=== PATIENT | female | born 2000 | race Two or more races ===

== ENCOUNTER 2024-09-15 09:01 | Inpatient (IN) | payer MEDICAID, OTHER ==
[~2024-09-15] VITALS: Ht 157.5 cm; Wt 61.2 kg
--- NOTE | 2024-09-15 09:36 | ED.PDOC ---
GI ASSESSMENT HPI Comments 24 year old female presents to the ED with chief complaint of abdominal pain. Patient reports that she has been experiencing diffuse abdominal pain with associated sweats, nausea, vomiting, and diarrhea since last night. Patient relays that she was normal prior to symptom onset and had gone to work with no issues. Patient denies any fever, chills, dizziness, headache, dysuria, or hematemesis. Chief Complaint: Nausea/Vomiting Time Seen by MD: 09:31 Primary Care Provider: NONE Reviewed Notes: Nurses Notes, Medications, Allergies Allergies: Coded Allergies: NO KNOWN ALLERGIES (Unverified , 09/15/24) Information Source: Patient Mode of Arrival: Ambulatory Timing: Hours Duration: Since onset Prehospital treatment: None Quality: Aching Vomitus: Watery Stool: Watery Severity: Moderate Recent: None Recent Hx of: None Pain Location: Diffuse Modifying Factors: Nothing Associated sign and symptoms: Nausea, Vomiting, Diarrhea, Abdominal Pain Past Medical History PAST MEDICAL HISTORY: Denies Surgical History: Denies all surgeries OBSTETRICIAN/GYNECOLOGIST History: No Pertinent OBSTETRICIAN/GYNECOLOGIST History Family History Family History: Reviewed,noncontributory to illness Social History Smoker: Non-Smoker Alcohol: Denies ETOH Use Drugs: Denies Drug Use Lives In: Home Constitutional: denies: chills, diaphoresis, fatigue, fever, malaise, sweats, weakness, others EENTM: denies: blurred vision, double vision, ear bleeding, ear discharge, ear drainage, ear pain, ear ringing, eye pain, eye redness, hearing loss, mouth pain, mouth swelling, nasal discharge, nose bleeding, nose congestion, nose pain, photophobia, tearing, throat pain, throat swelling, voice changes, others Respiratory: denies: cough, hemoptysis, orthopnea, SOB at rest, shortness of breath, SOB with excertion, stridor, wheezing, others Cardiovascular: denies: chest pain, dizzy spells, diaphoresis, Dyspnea on exertion, edema, irregular heart beat, left arm pain, lightheadedness, palp itations, PND, syncope, others Gastrointestinal: reports: abdominal pain, diarrhea, nausea, vomiting; denies: abdomen distended, blood streaked bowels, constipated, dysphagia, difficulty swallowing, hematemesis, melena, poor appetite, poor fluid intake, rectal bleeding, rectal pain, others Genitourinary: denies: abnormal vagina bleeding, burning, dyspareunia, dysuria, flank pain, frequency, hematuria, incontinence, pain, , vagina discharge, urgency, others Neurological: denies: dizziness, fainting, headache, left sided numbness, left sided weakness, numbness, paresthesia, pre-existing deficit, right sided numbness, right sided weakness, seizure, speech problems, tingling, tremors, weakness, others Musculoskeletal: denies: back pain, gout, joint pain, joint swelling, muscle pain, muscle stiffness, neck pain, others Integumetry: denies: bruises, change in color, change in hair/nails, dryness, laceration, lesions, lumps, rash, wounds, others Allergic/Immunocompromised: denies: Difficulty Healing, Frequent Infections, Hives, Itching, others Hematologic/Lymphatic: denies: anemia, blood clots, easy bleeding, easy bruising, swollen glands, others Endocrine: denies: excessive hunger, excessive sweating, excessive thirst, excessive urination, flushing, intolerance to cold, intolerance to heat, unexplained weight gain, unexplained weight loss, others Psychiatric: denies: anxiety, bipolar disorder, depression, hopeless, panic disorder, schizophrenia, sleepless, suicidal, others All Other Systems: Reviewed and Negative Physical Exam General Appearance: Moderate Distress, Normal HEENT: Normal ENT Inspection, PERRL/EOMI Neck: Full Range of Motion, Non-Tender, Normal, Normal Inspection Respiratory: Chest Non-Tender, Lungs Clear, No Accessory Muscle Use, No Respiratory Distress, Normal Breath Sounds Cardiovascular: No Edema, No JVD, No Murmur, No Gallop, Normal Peripheral Pulses, Regular Rate/Rhythm Breast Exam: Deferred Gastrointestinal: No Organomegaly, Non Tender, No Pulsatile Mass, Normal Bowel Sounds, Soft Genitalia: Deferred Pelvic: Deferred Rectal: Deferred Extremities: No calf tenderness, Normal capillary refill, Normal inspection, Normal range of motion, Non-tender, No pedal edema Musculoskeletal : Apperance: Normal Neurologic: Alert, can line operator II-XII nml as Tested, No Motor Deficits, Normal Affect, Normal Mood, No Sensory Deficits Cerebellar Function: Normal Reflexes: Normal Skin: Dry, Normal Color, Warm Peripheral Pulses: 3+ Radial (R), 3+ Radial (L) Lymphatic: No Adenopathy Was a procedure done? Was a procedure done?: No GI differential Dx Differential Diagnosis: Constipation, Diverticular disease, Esophagitis, Gastritis/PUD, Gastroenteritis, Dehydration, Food Poisoning X-Ray, Labs, Meds, VS Vital Signs Date Time Temp Pulse Resp B/P (MAP) Pulse Ox O2 Delivery O2 Flow Rate FiO2 09/15/24 15:00 98.5 88 16 107/53 (71) 100 98.5 09/15/24 13:29 97 16 102/58 (73) 97 09/15/24 11:00 99.0 88 18 115/55 (75) 99 99.0 09/15/24 10:56 62 16 128/83 09/15/24 10:26 96 18 119/76 09/15/24 10:15 99 Room Air* 0 21 09/15/24 10:09 100.2 96 18 119/76 (90) 99 100.2 09/15/24 10:09 96 18 99 Room Air 09/15/24 09:05 98.7 99 16 100/71 (81) 100 Lab Test 09/15/24 10:25 09/15/24 09:08 Range/Units White Blood Count 9.0 4.4-10.8 10^3/uL Red Blood Count 4.84 4.0-5.20 10^6/uL Hemoglobin 14.8 12.2-16.2 g/dL Hematocrit 43.6 36.0-46.0 % Mean Corpuscular Volume 90.0 80.0-100.0 fL Mean Corpuscular Hemoglobin 30.6 28.0-32.0 pg Mean Corpuscular Hemoglobin Concent 34.0 32.0-36.0 g/dL Red Cell Distribution Width 13.3 11.8-14.3 % Platelet Count 151 140-450 10^3/uL Mean Platelet Volume 9.6 6.9-10.8 fL Neutrophils (%) (Auto) 90.2 H 37.0-80.0 % Lymphocytes (%) (Auto) 4.1 L 10.0-50.0 % Monocytes (%) (Auto) 5.3 0.0-12.0 % Eosinophils (%) (Auto) 0.3 0.0-7.0 % Basophils (%) (Auto) 0.1 0.0-2.0 % Neutrophils # (Auto) 8.2 1.6-8.6 10 ^3/uL Lymphocytes # (Auto) 0.4 0.4-5.4 10 ^3/uL Monocytes # (Auto) 0.5 0-1.3 10 ^3/uL Eosinophils # (Auto) 0 0-0.8 10 ^3/uL Basophils # (Auto) 0 0-0.2 10 ^3/uL Nucleated Red Blood Cells 0.0 % Sodium Level 137 136-145 mmol/L Potassium Level 4.1 3.5-5.1 mmol/L Chloride Level 108 H 98-107 mmol/L Carbon Dioxide Level 22 20-31 mmol/L Anion Gap 7 5-15 Blood Urea Nitrogen 9 9-23 mg/dL Creatinine 0.77 0.550-1.02 mg/dL Glomerular Filtration Rate Calc 109 >90 mL/min BUN/Creatinine Ratio 11.7 10.0-20.0 Serum Glucose 88 74-106 mg/dL Calcium Level 9.4 8.7-10.4 mg/dL Beta HCG, Quantitative < 0.0 L 1.5-4.2 mIU/mL Urine Color Brown H Yellow Urine Clarity Turbid H Clear Urine pH 5.5 5.0-9.0 Urine Specific [place] 1.033 1.001-1.035 Urine Protein 1+ H Negative Urine Ketones 4+ H Negative Urine Blood 3+ H Negative /uL Urine Nitrite Negative Negative Urine Bilirubin Negative Negative Urine Urobilinogen Normal Negative mg/dL Urine Leukocyte Esterase 1+ Negative /uL Urine RBC 1743 0 - 4 /hpf Urine WBC 28 0 - 5 /hpf Urine Squamous Epithelial Cells Few <5 /hpf Urine Bacteria Few H None Seen /hpf Urine Mucus Few None Seen Urine Glucose Normal Normal mg/dL Current Medications Medications (Trade) Dose Ordered Sig/Ginger Route Start Time Stop Time Status Last Admin Sodium Chloride 1,000 ml @ 1,000 mls/hr Q1H ONCE IV 09/15/24 10:00 09/15/24 10:59 DC 09/15/24 10:28 Sodium Chloride 1,000 ml @ 150 mls/hr Q6H40M ONCE IV 09/15/24 10:00 09/15/24 16:39 DC 09/15/24 12:07 Ondansetron HCl (Zofran) 4 mg ONCE ONCE IV 09/15/24 10:00 09/15/24 10:01 DC 09/15/24 10:25 Morphine Sulfate 4 mg ONCE ONCE IV 09/15/24 10:00 09/15/24 10:01 DC 09/15/24 10:26 Ceftriaxone Sodium 50 ml @ 100 mls/hr ONCE ONCE IV 09/15/24 10:00 09/15/24 10:29 DC 09/15/24 10:27 Patient alert. Complaining of abdominal pain. Vitals stable. Answering questions. Establish intravenous access. Was given fluids. She does have generalized body aches. UA shows infection. Was given Rocephin. Was given pain medication. Was given Zofran. Reviewed her history. Explained to the patient about treatment plan. Continue cardiac monitoring. CT Abd/Pel: Findings: Limited evaluation given noncontrast technique. Lungs: The lung bases are clear. Heart: The visualized heart is unremarkable. No cardiomegaly or pericardial effusion. Liver: Unremarkable. Gallbladder: Unremarkable. Spleen: Unremarkable Pancreas: Unremarkable Adrenals: Unremarkable Kidneys: Unremarkable GI tract: Unremarkable : Unremarkable. Vasculature: Unremarkable Lymphadenopathy: Absent Peritoneum: No ascites Musculoskeletal: Unremarkable Soft tissues: Unremarkable Impression: 1. Limited evaluation given noncontrast technique. 2. No definite acute abdominopelvic abnormalities. Images Reviewed?: Images reviewed and evaluated by me Time of 1ST Reevaluation: 10:31 Reevaluation 1ST: Unchanged Patient Education/Counseling: Diagnosis, Treatment Family Education/Counseling: Diagnosis, Treatment Departure 1 Departure Time of Disposition: 10:38 Impression: Primary Impression: Sepsis due to urinary tract infection Disposition: ADMITTED INPATIENT Admit to: Med Surg Condition: Guarded Critical Care Note Critical Care Time?: Yes (45 min-critical care time only) Stability Stability form required: No Heart Score Heart Score: Heart Score Response (Comments) Value History N/A 0 EKG N/A 0 Age N/A 0 Risk Factors N/A 0 Troponin N/A 0 Total 0 I personally scribed for MALLY BAER MD ([email or web address]) on 09/15/24 at 09:36. Electronically submitted by Shahriar West ([email or web address]). I personally scribed for MALLY BAER MD ([email or web address]) on 09/15/24 at 17:22. Electronically submitted by Shahriar West ([email or web address]). MALLY BAER MD Sep 15, 2024 09:36
[2024-09-15 09:44] LABS: Urine Bacteria FEW /hpf (None Seen); Urine Blood 3+ /uL (Negative); Urine Clarity Turbid (Clear); Urine Color Brown (Yellow); Urine Mucus FEW (None Seen); Urine Protein, UAD 1+ (Negative); Urine Specific Gravity 1.033 (1.001-1.035); Urine Urobilinogen Normal (Negative); Urine WBC 28 /hpf (0 - 5); Urine pH 5.5 (5.0-9.0)
[2024-09-15 10:15] VITALS: O2SAT 99
[2024-09-15] MEDS: ONDANSETRON HCL 4 MG/2 ML VIAL IV ONE (10:25)
[2024-09-15] MEDS: MORPHINE SULFATE 4 MG/ML SYR/VIAL IV ONE (10:26)
[2024-09-15] MEDS: cefTRIAXone 1GM/50ML D5W 50 ML IV ONE (10:27)
[2024-09-15] MEDS: SODIUM CHLORIDE 0.9% 1,000 ML IV ONE ×2 (10:28→12:07)
[2024-09-15 11:04] LABS: Basophils # (auto) 0 10 ^3/uL (0-0.2); Basophils % (auto) 0.1 % (0.0-2.0); Eosinophils # (auto) 0 10 ^3/uL (0-0.8); Eosinophils % (auto) 0.3 % (0.0-7.0); Hematocrit 43.6 % (36.0-46.0); Hemoglobin 14.8 g/dL (12.2-16.2); Lymphocytes # (auto) 0.4 10 ^3/uL (0.4-5.4); Lymphocytes % (auto) 4.1 % (10.0-50.0); Mean Corpuscular Hemoglobin 30.6 pg (28.0-32.0); Monocytes # (auto) 0.5 10 ^3/uL (0-1.3); Monocytes % (auto) 5.3 % (0.0-12.0); Neutrophils # (auto) 8.2 10 ^3/uL (1.6-8.6); Neutrophils % (auto) 90.2 % (37.0-80.0); Platelet Count (auto) 151 10^3/uL (140-450); Red Blood Cells 4.84 10^6/uL (4.0-5.20); Red Cell Distribution Width 13.3 % (11.8-14.3)
[2024-09-15 11:20] LABS: Chloride 108 mmol/L (98-107); Potassium 4.1 mmol/L (3.5-5.1); Sodium 137 mmol/L (136-145)
[2024-09-15 11:21] LABS: Anion Gap 7 (5-15); Calcium 9.4 mg/dL (8.7-10.4); Carbon Dioxide 22 mmol/L (20-31)
[2024-09-15 11:26] LABS: BUN/Creatinine Ratio 11.7 (10.0-20.0); Blood Urea Nitrogen 9 mg/dL (9-23); Glucose 88 mg/dL (74-106)
--- NOTE | 2024-09-15 17:16 | DVH ---
Exam: CT CT AB PEL WO CON-NO ORAL OR IV History: enteritis Comparison Study: None TECHNIQUE: Multidetector CT of the abdomen and pelvis was performed from lung bases to pubic symphysi s. Imaging was performed without IV contrast. Axial, coronal, and sagittal multiplanar reformats were obtained from the axial data set by the technologist. RADIATION DOSE: DLP 259.73 mGy.cm; CTDI vol 5.34 mGy. Findings: Limited evaluation given noncontrast technique. Lungs: The lung bases are clear. Heart: The visualized heart is unremarkable. No cardiomegaly or pericardial effusion. Liver: Unremarkable. Gallbladder: Unremarkable. Spleen: Unremarkable Pancreas: Unremarkable Adrenals: Unremarkable Kidneys: Unremarkable GI tract: Unremarkable : Unremarkable. Vasculature: Unremarkable Lymphadenopathy: Absent Peritoneum: No ascites Musculoskeletal: Unremarkable Soft tissues: Unremarkable Impression: 1. Limited evaluation given noncontrast technique. 2. No definite acute abdominopelvic abnormalities.
[2024-09-15] MEDS ORDERED: ACETAMINOPHEN 325 MG TAB PO PRN (21:45)
[2024-09-15] MEDS ORDERED: NITROGLYCERIN 0.4 MG SL TAB SL PRN (21:45)
[2024-09-15] MEDS ORDERED: ONDANSETRON HCL 4 MG/2 ML VIAL IV PRN (21:45)
[2024-09-15] MEDS ORDERED: MORPHINE SULFATE INJ 2 MG/ml SYRG IV PRN ×2 (21:45)
[2024-09-15 22:13] LABS: Basophils # (auto) 0 10 ^3/uL (0-0.2); Basophils % (auto) 0.5 % (0.0-2.0); Eosinophils # (auto) 0 10 ^3/uL (0-0.8); Eosinophils % (auto) 0.2 % (0.0-7.0); Hematocrit 38.9 % (36.0-46.0); Hemoglobin 13.1 g/dL (12.2-16.2); Lymphocytes # (auto) 0.9 10 ^3/uL (0.4-5.4); Lymphocytes % (auto) 16.9 % (10.0-50.0); Mean Corpuscular Hemoglobin 30.2 pg (28.0-32.0); Mean Corpuscular Hgb Conc. 33.8 g/dL (32.0-36.0); Mean Corpuscular Volume 89.3 fL (80.0-100.0); Monocytes # (auto) 0.6 10 ^3/uL (0-1.3); Monocytes % (auto) 12.6 % (0.0-12.0); Neutrophils # (auto) 3.6 10 ^3/uL (1.6-8.6); Neutrophils % (auto) 69.8 % (37.0-80.0); Nucleated Red Blood Cells % 0.1 %; Platelet Count (auto) 129 10^3/uL (140-450); Red Blood Cells 4.36 10^6/uL (4.0-5.20); White Blood Cell 5.1 10^3/uL (4.4-10.8)
[2024-09-15] MEDS: SODIUM CHLOR 0.9% PF (SALINE LOCK) 10ML VIAL/SYR IV SCH (22:23)
[2024-09-15 22:33] LABS: Alanine Aminotransferase 10 U/L (7-40); Albumin 3.5 g/dL (3.2-4.8); Alkaline Phosphatase 41 U/L (46-116); Anion Gap 7 (5-15); Aspartate Aminotransferase 12 U/L (13-40); BUN/Creatinine Ratio 14.1 (10.0-20.0); Bilirubin, Total 0.6 mg/dL (0.2-1.0); Blood Urea Nitrogen 10 mg/dL (9-23); Calcium 8.3 mg/dL (8.7-10.4); Carbon Dioxide 22 mmol/L (20-31); Chloride 110 mmol/L (98-107); Glucose 92 mg/dL (74-106); Potassium 3.3 mmol/L (3.5-5.1); Sodium 139 mmol/L (136-145); Total Protein 5.6 g/dL (5.7-8.2)
--- NOTE | 2024-09-15 22:36 | DVHHPRES ---
History of Present Illness Resident Creating Document: CONSTANTINE LOAIZA RESIDENT History of Present Illness EWA BLAND is a 24 years old female with no significant PMH presented to the ED with the chief complaints of vomiting and diarrhea. Patient reported she has been having watery diarrhea for past 3 days but for past 1 days she has been having nausea, keep on throwing unable to keep up anything, profusely sweating, fever, chills, crampy abdominal pain which is 8/10 which prompted her to visit ED. Patient denies recent travel or sick contacts but patient reported she and her niece developed diarrhea after 1 day. On my assessment patient denies chest pain, shortness of breath, palpitations, fatigue, headache and other associated symptoms. Past Medical History None Past Surgical History: None Family History: None Past Social History Lives with . Denies smoking, alcohol and other drug abuse Review of Systems Constitutional: Yes: Fever, Chills, Sweats, Weakness Eyes: No: Pain, Vision change, Conjunctivae inflammation, Eyelid inflammation, Other, Redness ENT: No: Ear pain, Ear discharge, Nose pain, Nose discharge, Nose congestion, Mouth pain, Mouth swelling, Throat pain, Throat swelling, Other Respiratory: No: Cough, Dry, Shortness of breath, SOB with excertion, Wheezing, Hemoptysis, Pleuritic Pain, Sputum, Wheezing, Other Cardiovascular: No: Chest Pain, Palpitations, Orthopnea, Paroxysmal Noc. Dyspnea, Edema, Lt Headedness, Other Gastrointestinal: Nausea, Vomiting, Abdominal Pain, Diarrhea Genitourinary: No Dysuria, No Frequency, No Incontinence, No Hematuria, No Retention, No Other Musculoskeletal: No: other, neck pain, shoulder pain, arm pain, back pain, hand pain, leg pain, foot pain Skin: No: Rash, Lesions, Jaundice, Bruising, Other Neurological: No: Weakness, Numbness, Incoordination, Change in speech, Confusion, Seizures, Other Allergies: Coded Allergies: NO KNOWN ALLERGIES (Unverified , 09/15/24) Medications Current Medications Medications Dose Ordered Sig/Ginger Route Start Time Stop Time Status Last Admin Dose Admin Sodium Chloride 10 ml Q8HR IV 09/15/24 22:00 09/15/24 22:23 10 ML Acetaminophen 325 mg Q4HP PRN PO 09/15/24 21:45 Ondansetron HCl 4 mg Q4HP PRN IV 09/15/24 21:45 Morphine Sulfate 2 mg Q4HPRN PRN IV 09/15/24 21:45 Nitroglycerin 0.4 mg Q5MINP PRN SL 09/15/24 21:45 Morphine Sulfate 2 mg Q30M PRN IV 09/15/24 21:45 Exam Vital Signs Vital Signs Date Time Temp Pulse Resp B/P (MAP) Pulse Ox O2 Delivery O2 Flow Rate FiO2 09/15/24 20:20 99.6 73 16 103/44 (63) 97 99.6 09/15/24 19:30 Room Air* 0 21 Exam Pt is lying on bed General Appearance: Alert, Oriented X3, Cooperative,in moderate distress HEENT: Atraumatic, Mucous membranes moist/pink Respiratory: Clear to auscultation, Normal air movement, No added sounds Cardiovascular: Regular rate, Normal S1, Normal S2, No murmurs Abdominal: Mild abdominal tenderness Active bowel sounds, Soft, no distention, Extremities: No edema, Normal pulses, No tenderness/swelling Skin: No Significant rash, except past surgical scars Neuro: Normal speech, sensorimotor deficits none Psych/Mental Status: Mental status NL, Mood NL Nurse was there as sharperone during examination Labs/Xrays Labs Test 09/15/24 21:50 09/15/24 10:25 09/15/24 09:08 Range/Units White Blood Count 5.1 # 4.4-10.8 10^3/uL Red Blood Count 4.36 4.0-5.20 10^6/uL Hemoglobin 13.1 12.2-16.2 g/dL Hematocrit 38.9 # 36.0-46.0 % Mean Corpuscular Volume 89.3 80.0-100.0 fL Mean Corpuscular Hemoglobin 30.2 28.0-32.0 pg Mean Corpuscular Hemoglobin Concent 33.8 32.0-36.0 g/dL Red Cell Distribution Width 13.0 11.8-14.3 % Platelet Count 129 L 140-450 10^3/uL Mean Platelet Volume 9.5 6.9-10.8 fL Neutrophils (%) (Auto) 69.8 37.0-80.0 % Lymphocytes (%) (Auto) 16.9 10.0-50.0 % Monocytes (%) (Auto) 12.6 H 0.0-12.0 % Eosinophils (%) (Auto) 0.2 0.0-7.0 % Basophils (%) (Auto) 0.5 0.0-2.0 % Neutrophils # (Auto) 3.6 1.6-8.6 10 ^3/uL Lymphocytes # (Auto) 0.9 0.4-5.4 10 ^3/uL Monocytes # (Auto) 0.6 0-1.3 10 ^3/uL Eosinophils # (Auto) 0 0-0.8 10 ^3/uL Basophils # (Auto) 0 0-0.2 10 ^3/uL Nucleated Red Blood Cells 0.1 % Beta HCG, Quantitative < 0.0 L 1.5-4.2 mIU/mL Urine Color Brown H Yellow Urine Clarity Turbid H Clear Urine pH 5.5 5.0-9.0 Urine Specific [place] 1.033 1.001-1.035 Urine Protein 1+ H Negative Urine Ketones 4+ H Negative Urine Blood 3+ H Negative /uL Urine Nitrite Negative Negative Urine Bilirubin Negative Negative Urine Urobilinogen Normal Negative mg/dL Urine Leukocyte Esterase 1+ Negative /uL Urine RBC 1743 0 - 4 /hpf Urine WBC 28 0 - 5 /hpf Urine Squamous Epithelial Cells Few <5 /hpf Urine Bacteria Few H None Seen /hpf Urine Mucus Few None Seen Urine Glucose Normal Normal mg/dL Assessment/Plan Assessment/Plan # acute complicated UTI # rule out sepsis -evident on urinalysis -currently on Rocephin -ordered urine bacterial culture -monitor lab -IVF 50 mL/hour # ? Acute Gastroenteritis -ordered stool culture -monitor lab -IVF 50 mL/hour -CT abdominal pelvis showed no acute changes -clear liquid diet No VTE PPX since patient is ambulating Protonix Clear liquid diet Goals of care discussed with the patient and more than 27 minutes: Full code Case management discussed with Dr. Quesada, patient and nurse Plan discussed with: Patient My Orders Orders - CONSTANTINE LOAIZA RESIDENT Procedure Category Date Status Time Admit ADMIT 09/15/24 Transmitted 21:36 Allergies JOSE 09/15/24 In Process 21:36 Code Status CODE 09/15/24 Transmitted 21:36 Sodium Chloride Lock PHA 09/15/24 In Process (Saline Lock Ns) 22:00 Acetaminophen Tablet PHA 09/15/24 In Process (Tylenol Tablet) 21:45 Ondansetron Hcl PHA 09/15/24 In Process (Zofran) 21:45 Complete Blood Count LAB 09/16/24 Verified 04:00 Comprehensive LAB 09/16/24 Verified Metabolic Panel 04:00 Morphine Sulfate PHA 09/15/24 In Process Injection 21:45 Nitroglycerin PHA 09/15/24 In Process Sublingual (Ntrostat 21:45 Morphine Sulfate PHA 09/15/24 In Process Injection 21:45 Oxygen By Nasal RT 09/15/24 Transmitted Cannula 21:36 Stat Ekg For Chest JOSE 09/15/24 In Process Pain 21:36 Notify Md Of Changes JOSE 09/15/24 In Process From Base 21:36 Apprentice Photographer For JOSE 09/15/24 In Process 24 Hours 21:36 Emergency Dysrhythmia JOSE 09/15/24 In Process Protocol 21:36 Rhythm Strips Once JOSE 09/15/24 In Process Every Shift 21:36 Comprehensive LAB 09/15/24 In Process Metabolic Panel 21:36 Urine Bacterial RAJ 09/15/24 Logged Culture 22:18 Drug Screen LAB 09/15/24 Logged 22:18 Hemoglobin A1c LAB 09/15/24 In Process 22:18 Thyroid Stimulating LAB 09/15/24 In Process Hormone 22:18 Vitamin B12 LAB 09/15/24 In Process 22:18 Vitamin D, 25-Hydroxy LAB 09/15/24 In Process 22:18 Lactic Acid W/ Reflex LAB 09/15/24 Logged Order 22:18 Stool Bacterial RAJ 09/15/24 Logged Culture 22:20 Stool Wbc LAB 09/15/24 Logged 22:20 Ph Stool LAB 09/15/24 Logged 22:20 Ceftriaxone 1gm/50ml PHA 09/16/24 In Process D5w (Rocephin) 09:00 NS PHA 09/15/24 Verified 22:45 Pantoprazole PHA 09/15/24 Verified (Protonix) 22:45 Pantoprazole PHA 09/16/24 Verified (Protonix) 10:00 Clear Liq Diet DIET 09/16/24 Verified Breakfast CONSTANTINE LOAIZA RESIDENT Sep 15, 2024 22:36
[2024-09-15 22:56] VITALS: BP 122/67; PULSE 72; RESP 18; TEMP 99.2; O2SAT 100
[2024-09-15 23:22] VITALS: PULSE 72; RESP 18; O2SAT 97
[2024-09-15] MEDS: SODIUM CHLORIDE 0.9% 1,000 ML IV SCH (23:23)
[2024-09-15] MEDS: PANTOPRAZOLE 40 MG/10 ML VIAL INJ IV ONE (23:23)
[2024-09-15] MEDS: MELATONIN 5 MG TAB PO ONE (23:42)
[2024-09-16] VITALS (7 sets, daily range): BP systolic 100–119; BP diastolic 45–78; PULSE 56–68; RESP 15–18; TEMP 97.9–99; O2SAT 96–100
[2024-09-16] MEDS: POTASSIUM EFFERVESENT TAB 25 MEQ PO ONE (03:31)
[2024-09-16] MEDS: metroNIDAZOLE 500MG/100ML 100 ML IV SCH (05:25)
[2024-09-16 07:02] LABS: Hemoglobin 13.2 g/dL (12.2-16.2); Mean Corpuscular Hemoglobin 30.3 pg (28.0-32.0); Mean Corpuscular Hgb Conc. 33.7 g/dL (32.0-36.0); Mean Corpuscular Volume 89.9 fL (80.0-100.0); Platelet Count (auto) 142 10^3/uL (140-450); Red Blood Cells 4.34 10^6/uL (4.0-5.20); Red Cell Distribution Width 12.9 % (11.8-14.3); White Blood Cell 4.1 10^3/uL (4.4-10.8)
[2024-09-16 07:05] LABS: Basophils % (manual) 0 (0.0-2.0); Blast Cells 0; Metamyelocytes % 0; Myelocytes % 0; Promyelocytes % 0; Reactive Lymphocytes 0
[2024-09-16 07:31] LABS: Alanine Aminotransferase 11 U/L (7-40); Albumin 3.3 g/dL (3.2-4.8); Alkaline Phosphatase 40 U/L (46-116); Anion Gap 6 (5-15); Aspartate Aminotransferase 11 U/L (13-40); BUN/Creatinine Ratio 12.1 (10.0-20.0); Bilirubin, Total 0.5 mg/dL (0.2-1.0); Blood Urea Nitrogen 8 mg/dL (9-23); Calcium 8.6 mg/dL (8.7-10.4); Carbon Dioxide 22 mmol/L (20-31); Chloride 110 mmol/L (98-107); Glucose 79 mg/dL (74-106); Potassium 4.8 mmol/L (3.5-5.1); Sodium 138 mmol/L (136-145); Total Protein 5.6 g/dL (5.7-8.2)
[2024-09-16 08:05] LABS: Band Neutrophils % (manual) 8; Eosinophils % (manual) 3 (0-7); Lymphocytes % (manual) 24 (10.0-50.0); Monocytes % (manual) 14 (0-12); Platelet Estimate Adequate
[2024-09-16] MEDS: PANTOPRAZOLE 40 MG/10 ML VIAL INJ IV SCH (08:39)
[2024-09-16] MEDS: cefTRIAXone 1GM/50ML D5W 50 ML IV SCH (08:39)
[2024-09-16] MEDS: D5W/LACTATED RINGERS 1,000 ML IV SCH (09:15)
[2024-09-16 10:28] LABS: Free T3 3.15 pg/mL (2.3-4.2); Free T4 (Free Thyroxine) 1.04 ng/dL (0.89-1.76)
[2024-09-16 10:44] LABS: Lipase 32 U/L (12-53)
[2024-09-16 10:46] LABS: Amylase 35 U/L (30-118)
[2024-09-16 12:56] LABS: Amphetamine Screen, Urine Neg (NEGATIVE); Barbiturate Scree,Urine Neg (NEGATIVE); Benzodiazephine Screen, Urine Neg (NEGATIVE)
[2024-09-16 12:57] LABS: Cannabinoid Screen, Urine Neg (NEGATIVE); Cocaine Screen, Urine Neg (NEGATIVE); Opiate Scree,Urine Neg (NEGATIVE); Phencyclidine Screen, Urine Neg (NEGATIVE)
[2024-09-16] MEDS: metroNIDAZOLE 500 MG TAB PO SCH (14:00)
[2024-09-16] MEDS: CALCIUM GLUC 1,000mg/50ml-NS 50 ML IV ONE (14:13)
[2024-09-16] MEDS: LACTATED RINGER'S 1,000 ML IV SCH (14:13)
--- NOTE | 2024-09-16 19:32 | DVHPNRES ---
Progress Note Date Seen: Sep 16, 2024 Resident Creating Document: HOLLY RUFFIN RESIDENT Medical Necessity Reason Pt with a Central, PICC or Fol: No Subjective Patient reports: No new complaints, Feels better Changes from previous H/P or p: No Changes Review of Systems: HEENT:Normal, CVS:Normal, RESPIRATORY:Normal, GI:Abnormal (Nausea vomiting diarrhea improved), :Normal (Denies any UTI symptoms), MSK:Normal, NEURO:Normal Objective vital signs Vital Sign Date Time Temp Pulse Resp B/P (MAP) Pulse Ox O2 Delivery O2 Flow Rate FiO2 09/16/24 17:00 98.0 61 15 119/70 (86) 99 98.0 09/16/24 08:00 Room Air* 0 21 Total Intake and Output 09/15/24 09/15/24 09/16/24 15:00 23:00 07:00 Intake Total 1000 ml 645 ml Balance 1000 ml 645 ml medications Current Medications Medications Dose Ordered Sig/Ginger Route Start Time Stop Time Status Last Admin Dose Admin Sodium Chloride 10 ml Q8HR IV 09/15/24 22:00 09/16/24 14:13 10 ML Acetaminophen 325 mg Q4HP PRN PO 09/15/24 21:45 Ondansetron HCl 4 mg Q4HP PRN IV 09/15/24 21:45 Morphine Sulfate 2 mg Q4HPRN PRN IV 09/15/24 21:45 Ceftriaxone Sodium 50 ml @ 100 mls/hr DAILY@09 IV 09/16/24 09:00 09/16/24 08:39 100 MLS/HR Metronidazole 500 mg Q8HR PO 09/16/24 14:00 Famotidine 20 mg Q12HR PO 09/16/24 22:00 Lactated Ringer's 1,000 ml @ 150 mls/hr Q6H40M IV 09/16/24 13:45 09/16/24 14:13 150 MLS/HR Examination: GENERAL:Abnormal (Oral mucosa dry, clinically hypovolemic), HEENT:Normal, NECK:Normal, LUNGS:Normal, CVS:Normal, ABDOMEN:Normal (CV angle tenderness, suprapubic tenderness, BS positive call patient is passing flatus), MSK:Normal, SKIN:Normal, NEURO:Normal laboratory and microbiology Laboratory Tests 09/16/24 05:25 Test 09/16/24 05:25 Range/Units Serum Glucose 79 74-106 mg/dL Microbiology Date/Time Source Procedure Growth Status 09/16/24 06:00 Stool Stool Culture - Preliminary Resulted 09/16/24 06:00 Stool Shiga Toxin I & II - Final Resulted Labs and/or images reviewed: Labs reviewed by me, Image(s) reviewed by me Problem List/Assessment/Plan Problem List/Assessment/Plan Hospital course: Elissa Srivastava, a 24-year-old female with no significant past medical history, presented to the emergency department with vomiting and diarrhea. She has had watery diarrhea for three days and, for the past day, has experienced nausea, vomiting, profuse sweating, fever, chills, and severe crampy abdominal pain rated 8/10. She denies recent travel or sick contacts but mentioned that both she and her niece developed diarrhea after one day. She also reports weakness and is currently menstruating. Elissa lives with her , works at a [employer] shop, and has a history of miscarriage. She denies smoking, alcohol, Marijuana and drug abuse. report negative. # acute abdominal pain likely due to acute gastroenteritis, most likely viral: Yet to rule out any bacterial /infectious causes. Amylase/ lipase WNL, unlikely pancreatitis. Lactate WNL. So far negative for Shiga toxin, Campylobacter. Stool cultures/stool workup in progress. As needed pain management as patient is not having RTC pain. till final results back we will continue on IV fluid and appropriate antibiotic coverage with IV Rocephin and Flagyl. # Questionable UTI: Initial labs sample was contaminated with patient's menstruation. Negative CV angle tenderness, suprapubic angle tenderness, UTI symptoms. We will review repeat urinalysis from the midstream sample. Urine culture Follow up. Low possibility of resistant bug as patient was not hospitalized recently. # questionable acute sepsis: patient shows the signs of SIRS response with (borderline) fever, tachycardia with possible signs of source of infection as above. Sepsis dose bolus fluid with continuing fluid With 150 cc of LR. Close input output. Goal to keep a map over 65 As needed bolus. # Euthyroid sick syndrome: TSH 0.49, T3-T4 WNL Likely due to systemic disease. # Hypoproteinemia: Adjusted with, repeat CMP tomorrow trend for now. # hypocalcemia: Adjusted for hypoproteinemia normalizes. Repeat CMP tomorrow # Diet: Patient tolerated clear liquid diet, progressed to full liquid diet. Tomorrow we will plan to start on regular diet. # GI prophylaxis: With famotidine 20 b.i.d. PCP: To establish care. , we will follow up with outpatient discharge Clinic. Barriers to discharge: Need overnight medical treatment and close observation. Case discussed with Dr. Millard Code status: Full code. Complex patient care discussion needed total 37 minutes. Plan discussed with: Patient, Spouse, Other (Primary team, RN) My Orders My Orders Orders - HOLLY RUFFIN RESIDENT Procedure Category Date Status Time Blood Culture RAJ 09/16/24 In Process 08:42 Full Liq Diet DIET 09/16/24 Transmitted Lunch Urinalysis LAB 09/16/24 Logged 12:24 Metronidazole Tablet PHA 09/16/24 In Process (Flagyl Tablet) 14:00 Famotidine Tablet PHA 09/16/24 In Process (Pepcid Tablet) 22:00 Ova & Parasite Exam RAJ 09/16/24 Logged 13:40 Stool Wbc LAB 09/16/24 Logged 13:40 Lactated Ringer's PHA 09/16/24 In Process 13:45 Out Of Bed Ambulate JOSE 09/16/24 In Process 13:43 Ambulate Every 4hours JOSE 09/16/24 In Process 13:43 Incentive Spirometry ORDERS 09/16/24 Transmitted Q 1hr 13:43 Complete Blood Count LAB 09/17/24 Verified 04:00 Comprehensive LAB 09/17/24 Verified Metabolic Panel 04:00 Date of Service: Sep 16, 2024 Billing Provider: YURI MILLARD MD Common Visit Codes: [id number] INP/OBS CARE(HIGH) Coding Comment Comment I saw and evaluated the patient. I reviewed the residents note and agree with findings and plan as documented in the residents note. Initial urine sample given likely contaminated by her menses, we will repeat. Doubt UTI. In the meantime bacterial gastroenteritis coverage with Rocephin we will also cover for UTI HOLLY RUFFIN RESIDENT Sep 16, 2024 19:32 YURI MILLARD MD Sep 16, 2024 20:38
[2024-09-16] MEDS: FAMOTIDINE 20 MG TAB PO SCH (21:43)
[2024-09-16 22:05] LABS: Urine Bacteria FEW /hpf (None Seen); Urine Blood 2+ /uL (Negative); Urine Clarity Clear (Clear); Urine Color Colorless (Yellow); Urine Protein, UAD Negative (Negative); Urine Specific Gravity 1.008 (1.001-1.035); Urine Urobilinogen Normal (Negative); Urine WBC <1 /hpf (0 - 5); Urine pH 7.5 (5.0-9.0)
[2024-09-16] MEDS: MELATONIN 5 MG TAB PO SCH (23:35)
[2024-09-17] VITALS (7 sets, daily range): BP systolic 102–144; BP diastolic 47–70; PULSE 50–83; RESP 16–18; TEMP 36.9; O2SAT 98–99
[2024-09-17 05:45] LABS: Basophils # (auto) 0 10 ^3/uL (0-0.2); Basophils % (auto) 0.8 % (0.0-2.0); Eosinophils # (auto) 0.2 10 ^3/uL (0-0.8); Eosinophils % (auto) 5.3 % (0.0-7.0); Hematocrit 37.8 % (36.0-46.0); Hemoglobin 12.8 g/dL (12.2-16.2); Lymphocytes # (auto) 1.3 10 ^3/uL (0.4-5.4); Lymphocytes % (auto) 34.4 % (10.0-50.0); Mean Corpuscular Hemoglobin 30.3 pg (28.0-32.0); Mean Corpuscular Hgb Conc. 33.9 g/dL (32.0-36.0); Mean Corpuscular Volume 89.3 fL (80.0-100.0); Monocytes # (auto) 0.6 10 ^3/uL (0-1.3); Neutrophils # (auto) 1.7 10 ^3/uL (1.6-8.6); Neutrophils % (auto) 44.5 % (37.0-80.0); Nucleated Red Blood Cells % 0.2 %; Platelet Count (auto) 135 10^3/uL (140-450); Red Blood Cells 4.23 10^6/uL (4.0-5.20); Red Cell Distribution Width 13.1 % (11.8-14.3); White Blood Cell 3.8 10^3/uL (4.4-10.8)
[2024-09-17 06:57] LABS: Albumin 3.4 g/dL (3.2-4.8); Alkaline Phosphatase 38 U/L (46-116); Anion Gap 7 (5-15); Aspartate Aminotransferase 14 U/L (13-40); Bilirubin, Total 0.3 mg/dL (0.2-1.0); Blood Urea Nitrogen 6 mg/dL (9-23); Calcium 9.2 mg/dL (8.7-10.4); Carbon Dioxide 24 mmol/L (20-31); Chloride 110 mmol/L (98-107); Glucose 109 mg/dL (74-106); Potassium 3.9 mmol/L (3.5-5.1); Sodium 141 mmol/L (136-145); Total Protein 5.7 g/dL (5.7-8.2)
[2024-09-17 07:06] LABS: Alanine Aminotransferase 13 U/L (7-40)
--- NOTE | 2024-09-17 17:42 | DVHDSRES ---
Discharge Summary Date of Admission Resident Creating Document: HOLLY RUFFIN RESIDENT Sep 15, 2024 at 21:36 Date of Discharge: Sep 17, 2024 Labs/Diagnostic Data: Laboratory Results Test 09/17/24 04:43 09/16/24 22:00 09/16/24 10:50 09/16/24 06:00 White Blood Count 3.8 10^3/uL (4.4-10.8) Red Blood Count 4.23 10^6/uL (4.0-5.20) Hemoglobin 12.8 g/dL (12.2-16.2) Hematocrit 37.8 % (36.0-46.0) Mean Corpuscular Volume 89.3 fL (80.0-100.0) Mean Corpuscular Hemoglobin 30.3 pg (28.0-32.0) Mean Corpuscular Hemoglobin Concent 33.9 g/dL (32.0-36.0) Red Cell Distribution Width 13.1 % (11.8-14.3) Platelet Count 135 10^3/uL (140-450) Mean Platelet Volume 9.9 fL (6.9-10.8) Neutrophils (%) (Auto) 44.5 % (37.0-80.0) Lymphocytes (%) (Auto) 34.4 % (10.0-50.0) Monocytes (%) (Auto) 15.0 % (0.0-12.0) Eosinophils (%) (Auto) 5.3 % (0.0-7.0) Basophils (%) (Auto) 0.8 % (0.0-2.0) Neutrophils # (Auto) 1.7 10 ^3/uL (1.6-8.6) Lymphocytes # (Auto) 1.3 10 ^3/uL (0.4-5.4) Monocytes # (Auto) 0.6 10 ^3/uL (0-1.3) Eosinophils # (Auto) 0.2 10 ^3/uL (0-0.8) Basophils # (Auto) 0 10 ^3/uL (0-0.2) Nucleated Red Blood Cells 0.2 % Sodium Level 141 mmol/L (136-145) Potassium Level 3.9 mmol/L (3.5-5.1) Chloride Level 110 mmol/L (98-107) Carbon Dioxide Level 24 mmol/L (20-31) Anion Gap 7 (5-15) Blood Urea Nitrogen 6 mg/dL (9-23) Creatinine 0.67 mg/dL (0.550-1.02) Glomerular Filtration Rate Calc 124 mL/min (>90) BUN/Creatinine Ratio 9.0 (10.0-20.0) Serum Glucose 109 mg/dL (74-106) Calcium Level 9.2 mg/dL (8.7-10.4) Total Bilirubin 0.3 mg/dL (0.2-1.0) Aspartate Amino Transferase (AST) 14 U/L (13-40) Alanine Aminotransferase (ALT) 13 U/L (7-40) Alkaline Phosphatase 38 U/L (46-116) Total Protein 5.7 g/dL (5.7-8.2) Albumin 3.4 g/dL (3.2-4.8) Urine Color Colorless (Yellow) Urine Clarity Clear (Clear) Urine pH 7.5 (5.0-9.0) Urine Specific [place] 1.008 (1.001-1.035) Urine Protein Negative (Negative) Urine Ketones Negative (Negative) Urine Blood 2+ /uL (Negative) Urine Nitrite Negative (Negative) Urine Bilirubin Negative (Negative) Urine Urobilinogen Normal mg/dL (Negative) Urine Leukocyte Esterase Negative /uL (Negative) Urine RBC 16 /hpf (0 - 4) Urine WBC <1 /hpf (0 - 5) Urine Squamous Epithelial Cells Few /hpf (<5) Urine Bacteria Few /hpf (None Seen) Urine Glucose Normal mg/dL (Normal) Urine Opiates Screen Neg (NEGATIVE) Urine Fentanyl Screen Neg (NEGATIVE) Urine Barbiturates Screen Neg (NEGATIVE) Urine Phencyclidine Screen Neg (NEGATIVE) Urine Amphetamines Screen Neg (NEGATIVE) Urine Benzodiazepines Screen Neg (NEGATIVE) Urine Cocaine Screen Neg (NEGATIVE) Urine Cannabinoids Screen Neg (NEGATIVE) Stool for White Cells Few Test 09/16/24 05:25 09/15/24 22:33 09/15/24 21:50 09/15/24 10:25 Differential Total Cells Counted 100.0 (100) Neutrophils % (Manual) 51 (37.0-80.0) Band Neutrophils % (Manual) 8 Lymphocytes % (Manual) 24 (10.0-50.0) Monocytes % (Manual) 14 (0-12) Eosinophils % (Manual) 3 (0-7) Basophils % (Manual) 0 (0.0-2.0) Metamyelocytes % (manual) 0 Myelocytes % (Manual) 0 Promyelocytes % (Manual) 0 Blast Cells % (Manual) 0 Reactive Lymphocytes 0 Platelet Estimate Adequate Amylase Level 35 U/L (30-118) Lipase 32 U/L (12-53) Free Thyroxine (T4) Calculated 1.04 ng/dL (0.89-1.76) Free Triiodothyronine (T3) pg/mL 3.15 pg/mL (2.3-4.2) Lactic Acid Level 0.5 mmol/L (0.4-2.0) Hemoglobin A1c 5.1 % A1C (<5.7) Vitamin B12 Level 584 pg/mL (211-911) Vitamin D 25-Hydroxy 36.3 ng/mL (30.0-100) Thyroid Stimulating Hormone (TSH) 0.49 uIU/mL (0.55-4.78) Beta HCG, Quantitative < 0.0 mIU/mL (1.5-4.2) Test 09/15/24 09:08 Urine Mucus Few (None Seen) Other Laboratory Tests 09/17/24 04:43 Brief Hx & Hospital Course: Hospital Discharge: Ewa Srivastava, a 24-year-old female no significant medical history, presented with three days of watery diarrhea and one day of nausea, vomiting, sweating, fever, chills, and severe abdominal pain. She and her niece both developed diarrhea after one day. Ewa is currently menstruating, lives with her , works at a [employer], and has a history of miscarriage. She denies smoking, alcohol, drug use, and . She will be discharged with instructions for hydration and follow-up with her primary care physician and outpatient clinic. Her symptoms have resolved, tolerated diet tolerated diet with normalization of bowel and bladder and she remains stable. Pending EBV panel,needs to follow up out patient and avoid contact sports or blunt trauma to abdomen. Medical conditions treated in hospital: # acute abdominal pain likely due to acute gastroenteritis, most likely viral. # Questionable UTI Ruled out # questionable acute sepsis secondary to viral gastroenteritis # Euthyroid sick syndrome # Hypoproteinemia, resolved # hypocalcemia, resolved # intravascular dehydration secondary to GI fluid loss, status post IV fluid euvolemic. # Myron tom virus panel sent to follow up outpaitent mary beth. Case discussed with Dr. Walters Code status: Full code. Complex patient care discussion needed total 37 minutes. Discharge disposition needed total 44 minutes of discussion. Continue oral hydration. Patient and patient's agreed with the plan. Operations or Procedures [facility] [address] [facility] [address] Ph: [phone] DIAGNOSTIC IMAGING Diagnostic Imaging Report : [id number] Signed PATIENT: EWA SRIVASTAVA ACCT: [id number] UNIT: [id number] : 2000 LOC: ER ROOM / BED: / AGE / SEX: 24 / F ADM STATUS: REG ER SERVICE 1500 ORDERING PHYSICIAN: MALLY BAER MD PROCEDURE(s): ABPL - CT AB PEL WO CON-NO ORAL OR IV REASON: enteritis ORDER NUMBER(s): [id number], ACCESSION NUMBER(s): [id number] Exam: CT CT AB PEL WO CON-NO ORAL OR IV History: enteritis Comparison Study: None TECHNIQUE: Multidetector CT of the abdomen and pelvis was performed from lung bases to pubic symphysis. Imaging was performed without IV contrast. Axial, coronal, and sagittal multiplanar reformats were obtained from the axial data set by the technologist. RADIATION DOSE: DLP 259.73 mGy.cm; CTDI vol 5.34 mGy. Findings: Limited evaluation given noncontrast technique. Lungs: The lung bases are clear. Heart: The visualized heart is unremarkable. No cardiomegaly or pericardial effusion. Liver: Unremarkable. Gallbladder: Unremarkable. Spleen: Unremarkable Pancreas: Unremarkable Adrenals: Unremarkable Kidneys: Unremarkable GI tract: Unremarkable : Unremarkable. Vasculature: Unremarkable Lymphadenopathy: Absent Peritoneum: No ascites Musculoskeletal: Unremarkable Soft tissues: Unremarkable Impression: 1. Limited evaluation given noncontrast technique. 2. No definite acute abdominopelvic abnormalities. ATED BY: DAIJA LUTZ DO DICTATED DATE/TIME: 09/15/241714 SIGNED BY: DAIJA LUTZ DO SIGNED DATE/TIME: 09/15/241714 CC: RUN DATE: 09/17/24 PAGE 1 RUN TIME: 1212 [facility] [address] [facility], [place] [address] Melissa Lainez M.D., Laboratory Hip Hop Dance Instructor - PATIENT: EWA SRIVASTAVA ACCT: [id number] LOC: [place] U: [id number] AGE/SX: ROOM: 0214 RE09/15/[address]: HOLLY RUFFIN RESIDENT : 2000 BED: B DIS: STATUS: ADM IN TLOC: - SPEC #: [id number] ANIRUDH: 09/16/24 STATUS: RES REQ #: [id number] RECD: 09/16/[address]: CONSTANTINE LOAIZA RESIDENT SOURCE: VOID ENTR: 09/15/[address]: JAY: ORDERED: [facility] COMMENTS: NEED A NEW SAMPLE SENT TO LAB -[facility] 2199 - Procedure Result - Urine Bacterial Culture Preliminary No growth RUN DATE: 09/17/24 PAGE 1 RUN TIME: 945 [facility] [address] [place] [address] Melissa Lainez M.D., Laboratory Hip Hop Dance Instructor - PATIENT: EWA SRIVASTAVA ACCT: [id number] LOC: [place] U: [id number] AGE/SX: / ROOM: 0214 RE09/15/[address]: HOLLY RUFFIN RESIDENT : 2000 BED: B DIS: STATUS: ADM IN TLOC: - SPEC #: [id number] ANIRUDH: 09/16/24 STATUS: RES REQ #: [id number] RECD: 09/16/[address]: HOLLY RUFFIN RESIDENT SOURCE: BLOOD ENTR: 09/16/[address]: CONSTANTINE LOAIZA RESIDENT [facility]: ORDERED: BCULT - Procedure Result - Blood Culture Preliminary NO GROWTH AFTER 24 HOURS OF INCUBATION. NO GROWTH AFTER 24 HOURS OF INCUBATION. RUN DATE: 09/17/24 PAGE 1 RUN TIME: 1214 [facility] [address] [place], [place] [address] Melissa Lainez M.D., Laboratory Hip Hop Dance Instructor - PATIENT: EWA SRIVASTAVA ACCT: [id number] LOC: [place] U: [id number] AGE/SX: 24/ ROOM: 0214 RE09/15/[address]: HOLLY RUFFIN RESIDENT : 2000 BED: B DIS: STATUS: ADM IN TLOC: - SPEC #: [id number] ANIRUDH: 09/16/24 STATUS: RES REQ #: [id number] RECD: 09/16/24 [facility] DR: CONSTANTINE LOAIZA RESIDENT SOURCE: STOOL ENTR: 09/15/[address] [facility] [address]: SPDESC: ORDERED: STLC - Procedure Result - Stool Culture Preliminary Report No Campylobacter antigen detected Many growth: Normal Enteric Violeta Still ruling out pathogens. Shiga Toxin 1&2 Final Shiga Toxin 1 Negative (-) Shiga Toxin 2 Negative (-) Consistency WATERY END OF REPORT END OF REPORT END OF REPORT Condition at Discharge: Good Final Diagnosis/Problems List # acute abdominal pain likely due to acute gastroenteritis, most likely viral # Questionable UTI Ruled out # acute sepsis likely due to acute gastroenteritis # Euthyroid sick syndrome # Hypoproteinemia # hypocalcemia # [facility] Discharge Disposition: Home Discharge Instruct/Medications Diet: Regular Activity: No Restrictions, As Tolerated Activity comment: avoid contact sports and abdominal trauma Follow Up/Referral: follow up with outpatient discharge Clinic establish care with pcp Medications: as per MAR Discharge Statement: "Patient was advised to return to the ER or call 911 if any headaches, dizziness, shortness of breath, chest pain, abdominal pain, bleeding, fevers, or worsening of medical condition. Patient was counseled about treatment plan, medications, possible side effects, patientverbalized understanding. All questions were answered to the best of my ability. This discharge took greater then 30 minutes in planning, reviewing documentation, counseling the patient, and discussing with other team members." ASSESSMENT ASSESSMENT Assessment # acute abdominal pain likely due to acute gastroenteritis, most likely viral # Questionable UTI Ruled out # questionable acute sepsis. # Euthyroid sick syndrome # Hypoproteinemia # hypocalcemia # [facility] tom [facility] Date of Service: Sep 17, 2024 Billing Provider: YURI WALTERS MD Common Visit Codes: 18285-IGA/OBS DISCH DAY >30min Coding Comment Comment I saw and evaluated the patient. I reviewed the residents note and agree with findings and plan as documented in the residents note. HOLLY RUFFIN RESIDENT Sep 17, 2024 17:42 YURI WALTERS MD Sep 17, 2024 20:52
[2024-09-18 05:08] LABS: EBV Ab VCA IgM Antibody <36.0 U/mL (0.0-35.9)
== END 2024-09-17 18:45 | disposition home or self-care (01) | DRG 249 ==
LOC: ER 09:01 → OVERFLOW 21:36 → CENTRAL 21:39
PROVIDERS: ADMIT Student in an Organized Health Care Education/Training Program; ATTEND Student in an Organized Health Care Education/Training Program
DX: A08.4 Viral intestinal infection, unspecified (principal); E83.51 Hypocalcemia; E87.6 Hypokalemia; E07.81 Sick-euthyroid syndrome; Z79.899 Other long term (current) drug therapy
CPT/HCPCS: 36415; 74176; 80048; 80053; 80307; 81001; 82150; 82306; 82607; 83036; 83605; 83690; 83986; 84439; 84443; 84481; 84702; 85007; 85025; 85027; 85048; 86664; 87040; 87045; 87086; 87177; 87427; 96361; 96365; 96375; 99291; G0378; J2405; J2470; J3490